=== PATIENT | female | born 1970 | race Caucasian/White ===

== ENCOUNTER 2018-10-11 05:27 | Emergency (ER) | payer OTHER ==
[2018-10-11 04:49] LABS: ALBUMIN 3.3 g/dL (3.5-5.0); BILIRUBIN,TOTAL 0.3 mg/dL (0.2-1.0); CREATININE 1.1 mg/dL (0.5-1.5); POTASSIUM 3.8 mmol/L (3.5-5.1); TOTAL PROTEIN, SERUM 7.4 g/dL (6.0-8.3)
[2018-10-11 04:51] LABS: BASOPHILS % (AUTO) 1.5 % (0.0-5.0); EOSINOPHILS % (AUTO) 1.4 % (0.0-8.0); HEMATOCRIT 45.8 % (36-48); LYMPHOCYTES % (AUTO) 26.3 % (21.0-51.0); MEAN CORPUSCULAR HEMOGLOBIN 30.8 pg (27.0-33.0); MEAN CORPUSCULAR HGB CONC 33.4 g/dL (32.0-36.0); MEAN CORPUSCULAR VOLUME 92.1 fL (79-99); NEUTROPHILS % (AUTO) 63.8 % (40.0-77.0); NUCLEATED RED BLOOD CELLS 0.1 % (0.0-0.19); PLATELET COUNT (AUTO) 227 K/uL (130-400); RED BLOOD CELL COUNT(AUTO) 4.97 MIL/uL (4.00-5.50); RED CELL DISTRIBUTION WIDTH 15.9 % (11.0-15.5); WHITE BLOOD COUNT (AUTO) 12.4 K/uL (4.8-10.8)
[2018-10-11 04:55] LABS: APPEARANCE,URINE Cloudy (CLEAR); BILIRUBIN,URINE Negative (NEGATIVE); COLOR,URINE Yellow (YELLOW); GLUCOSE, URINE (UA) >=1000 mg/dL (NEGATIVE); KETONES,URINE Negative (NEGATIVE); LEUKOCYTE ESTERASE ,URINE Negative (NEGATIVE); NITRATE,URINE Negative (NEGATIVE); OCCULT BLOOD,URINE Negative (NEGATIVE); PH,URINE 5.5 (5.0-8.0); PROTEIN,URINE Negative (NEGATIVE); UROBILINOGEN,URINE 0.2 mg/dL (0.2-1.0)
[2018-10-11 05:06] LABS: AMORPHOUS SEDIMENT,UR Rare /LPF (None Seen); BACTERIA,URINE Rare /HPF (None Seen); RBC,URINE None Seen /HPF (0-1); SQUAMOUS EPITHELIAL CELL,UR Few /HPF (0-2); WBC,URINE 0-1 /HPF (0-1); YEAST,URINE BUDDING None Seen /HPF (None Seen)
[2018-10-11] MEDS ORDERED: ASPIRIN 325 MG TABLET ONE (05:39)
[2018-10-11] MEDS ORDERED: INSULIN HUMULIN R 100 UNIT/ML 3ML ONE (05:40)
[2018-10-11 05:56] LABS: AMPHET/METH SCREEN,URINE NEGATIVE (NEGATIVE); BARBITURATE SCREEN, URINE NEGATIVE (NEGATIVE); BENZODIAZEPINES SCREEN,URINE NEGATIVE (NEGATIVE); CANNABINOID SCREEN,URINE NEGATIVE (NEGATIVE); COCAINE SCREEN,URINE NEGATIVE (NEGATIVE); OPIATE SCREEN,URINE NEGATIVE (NEGATIVE); PHENCYCLIDINE SCREEN,URINE NEGATIVE (NEGATIVE)
== END 2018-10-11 05:49 | disposition left against medical advice (07) ==
LOC: EDSTATUS 05:27 → EDH 05:30
DX: R07.89 Other chest pain (principal); E11.9 Type 2 diabetes mellitus without complications; I10 Essential (primary) hypertension; Z79.899 Other long term (current) drug therapy; Z88.8 Allergy status to other drugs, medicaments and biological substances
CPT/HCPCS: 36415; 71045; 80053; 80305; 81001; 84484; 85025; 93005; 96372; 99284; J1815

== ENCOUNTER 2018-10-25 10:07 | Emergency (ER) | payer SELFPAY | END 2018-10-25 11:00 | disposition home or self-care (01) | LOC: EDH 10:07 | DX: L02.411 Cutaneous abscess of right axilla (principal); B49 Unspecified mycosis; E11.9 Type 2 diabetes mellitus without complications; I10 Essential (primary) hypertension; Z88.8 Allergy status to other drugs, medicaments and biological substances; Z90.49 Acquired absence of other specified parts of digestive tract; Z95.1 Presence of aortocoronary bypass graft; Z90.710 Acquired absence of both cervix and uterus; Z72.0 Tobacco use ==

== ENCOUNTER 2022-12-07 12:20 | Inpatient (IN) | payer MEDICARE ==
[~2022-12-07] VITALS: Ht 165.1 cm; Wt 101.7 kg
[2022-12-07] MEDS ORDERED: 0.9%NACL 1000ML 1,000 ML IV ONE (14:00)
[2022-12-07] MEDS ORDERED: KETOROLAC 15MG/ML VIAL (15MG/ML) IV ONE (14:00)
[2022-12-07 14:33] LABS: BASOPHILS % (AUTO) 0.3 % (0.0-5.0); EOSINOPHILS % (AUTO) 0.4 % (0.0-8.0); HEMATOCRIT 35.9 % (36-48); LYMPHOCYTES % (AUTO) 4.7 % (21.0-51.0); MEAN CORPUSCULAR HEMOGLOBIN 29.6 pg (27.0-33.0); MEAN CORPUSCULAR HGB CONC 34.3 g/dL (32.0-36.0); MEAN CORPUSCULAR VOLUME 86.5 fL (79-99); MONOCYTES % (AUTO) 6.3 % (3.0-13.0); NEUTROPHILS % (AUTO) 86.7 % (40.0-77.0); PLATELET COUNT (AUTO) 252 K/uL (130-400); RED BLOOD CELL COUNT(AUTO) 4.15 MIL/uL (4.00-5.50); RED CELL DISTRIBUTION WIDTH 13.5 % (11.0-15.5); WHITE BLOOD COUNT (AUTO) 24.7 K/uL (4.8-10.8)
[2022-12-07 14:41] LABS: CREATININE 1.4 mg/dL (0.5-1.5)
[2022-12-07 14:45] LABS: ALBUMIN 2.5 g/dL (3.5-5.0); TOTAL PROTEIN, SERUM 7.6 g/dL (6.0-8.3)
[2022-12-07] MEDS ORDERED: ZOSYN 3.375GM +NS 50ML IVPB ONE (15:00)
[2022-12-07 15:03] LABS: CRP QUANTITATIVE 301.4 mg/L (0.00-9.0)
[2022-12-07] MEDS ORDERED: IOHEXOL 350 MG/ML 100ML INFUS..BTL IV ONE (15:18)
[2022-12-07 15:43] LABS: APPEARANCE,URINE CLOUDY (CLEAR); BILIRUBIN,URINE NEGATIVE (NEGATIVE); COLOR,URINE YELLOW (YELLOW); GLUCOSE, URINE (UA) 300 mg/dL (NEGATIVE); KETONES,URINE 10 mg/dL (NEGATIVE); LEUKOCYTE ESTERASE ,URINE 500 Leu/uL (NEGATIVE); NITRATE,URINE NEGATIVE (NEGATIVE); OCCULT BLOOD,URINE SMALL (NEGATIVE); PH,URINE 5.5 (5.0-8.0); PROTEIN,URINE 100 mg/dL (NEGATIVE); UROBILINOGEN,URINE 0.2 mg/dL (0.2-1.0)
[2022-12-07 15:55] LABS: BACTERIA,URINE FEW /HPF (None Seen); MUCUS,URINE FEW LPF (None Seen); OTHER CASTS, URINE 2 /LPF (None Seen); SQUAMOUS EPITHELIAL CELL,UR MOD /HPF (0-2); WBC,URINE 51-100 /HPF (0-1); YEAST,URINE BUDDING FEW /HPF (None Seen)
[2022-12-07 17:29] LABS: HEMOGLOBIN A1C 11.2 % (4.0-6.0)
[2022-12-07] MEDS ORDERED: POTASSIUM CHLORIDE 20MEQ/100ML 100 ML IV PRN (17:30)
[2022-12-07] MEDS ORDERED: ZOLPIDEM TARTRATE 5 MG TAB PO PRN (17:30)
[2022-12-07] MEDS ORDERED: MORPHINE 2 MG SYG IV PRN (17:30)
[2022-12-07] MEDS ORDERED: ACETAMINOPHEN 325 MG TAB PO PRN (17:30)
[2022-12-07] MEDS ORDERED: GLUCAGON 1MG KIT 1 MG ML IM PRN (17:30)
[2022-12-07] MEDS ORDERED: DIPHENHYDRAMINE HCL 25 MG CAPSULE PO PRN (17:30)
[2022-12-07] MEDS ORDERED: MAGNESIUM 2GM PREMIX 50ML 50 ML IV PRN (17:30)
[2022-12-07] MEDS ORDERED: POTASSIUM CHLORIDE 10% ELIXIR 20 MEQ/15 ML UDCUP PO PRN (17:30)
[2022-12-07] MEDS ORDERED: D5W-1/2 NS/20MEQ KCL 1,000 ML IV SCH (17:30)
[2022-12-07] MEDS ORDERED: MANNITOL 20% 500ML BAG 500 ML IV SCH (17:30)
[2022-12-07] MEDS ORDERED: POTASSIUM CHLORIDE 10MEQ/100ML 100 ML IV PRN (17:30)
[2022-12-07] MEDS ORDERED: KCL 20 MEQ ERTAB PO PRN (17:30)
[2022-12-07] MEDS ORDERED: INSULIN REGULAR, HUMAN 3ML 100 UNIT in 0.9%NACL 100ML 100 ML IV SCH ×2 (17:30)
[2022-12-07] MEDS ORDERED: 0.9%NACL 1000ML 1,000 ML IV SCH ×2 (17:30)
[2022-12-07] MEDS ORDERED: LIDOCAINE HCL-MPF 1% 2ML VIAL IV PRN (17:30)
[2022-12-07] MEDS ORDERED: ACETAMINOPHEN WITH CODEINE 1 TAB TAB PO PRN (17:30)
[2022-12-07] MEDS ORDERED: DEXTROSE 50%-WATER 50 ML DISP.SYRIN IV PRN (17:30)
[2022-12-07] MEDS ORDERED: MAGNESIUM 2GM PREMIX 50ML 50 ML IV SCH (17:30)
[2022-12-07 17:32] LABS: CHOLESTEROL 52 mg/dL (<200); HDL CHOLESTEROL 14 mg/dL (35-85); LDL DIRECT 21 mg/dL (0-99); TRIGLYCERIDES 92 mg/dL (30-200)
[2022-12-07] MEDS: ONDANSETRON 4MG INJ IV PRN (17:56)
[2022-12-07] MEDS: CEFTRIAXONE 1G VIAL IV SCH (17:56)
[2022-12-07 18:30] LABS: CREATININE 1.4 mg/dL (0.5-1.5); POTASSIUM 3.7 mmol/L (3.5-5.1)
[2022-12-07 19:31] LABS: ABG OXYGEN SATURATION 54.1 % (95.0-99.0); BASE EXCESS,VENOUS BLOOD GAS -6.7 (-2.0-3.0); HCO3,VENOUS BLOOD GAS 17.4 (21.0-28.0); PCO2,VENOUS BLOOD GAS 31 (32-45); PH,VENOUS BLOOD GAS 7.374 (7.350-7.450)
[2022-12-07] MEDS ORDERED: LACTATED RINGERS 1000ML 500 ML IV ONE (20:30)
[2022-12-07] MEDS ORDERED: INSULIN GLARGINE 100 UNITS/ML 10 ML VIAL SQ ONE (20:30)
[2022-12-07] MEDS: FAMOTIDINE 20MG TAB PO SCH (20:42)
[2022-12-07] MEDS ORDERED: INSULIN HUMULIN R 100 UNIT/ML 3ML SQ SCH (21:00)
[2022-12-07] MEDS: LACTATED RINGERS 1000ML 1,000 ML IV SCH (21:49)
[2022-12-07] MEDS: INSULIN HUMULIN R 100 UNIT/ML 3ML SQ SCH (21:49)
[2022-12-07 21:51] LABS: AMPHET/METH SCREEN,URINE NEGATIVE (NEGATIVE); BARBITURATE SCREEN, URINE NEGATIVE (NEGATIVE); BENZODIAZEPINES SCREEN,URINE NEGATIVE (NEGATIVE); CANNABINOID SCREEN,URINE POSITIVE (NEGATIVE); COCAINE SCREEN,URINE NEGATIVE (NEGATIVE); OPIATE SCREEN,URINE NEGATIVE (NEGATIVE); PHENCYCLIDINE SCREEN,URINE NEGATIVE (NEGATIVE)
[2022-12-07 23:30] VITALS: BP 137/78
[2022-12-07] MEDS ORDERED: GLIP10TA9 PO (23:33)
[2022-12-07] MEDS ORDERED: TOPI25TA48 PO (23:33)
[2022-12-07] MEDS ORDERED: LISI20TA24 PO (23:33)
[2022-12-07] MEDS ORDERED: SEMA0.258 SQ (23:33)
[2022-12-07] MEDS ORDERED: ZOLP12.555 PO (23:33)
[2022-12-07] MEDS ORDERED: ONDA-104 PO (23:33)
[2022-12-07] MEDS ORDERED: ROSU20TA31 PO (23:33)
[2022-12-07] MEDS ORDERED: CLOP75TA32 PO (23:33)
[2022-12-07] MEDS ORDERED: CYCL5TAB PO (23:33)
[2022-12-07] MEDS ORDERED: INSU100I22 SQ (23:33)
[2022-12-07] MEDS ORDERED: NITR0.4T50 SL (23:33)
[2022-12-08] MEDS: ACETAMINOPHEN WITH CODEINE 1 TAB TAB PO PRN ×3 (02:58→16:02)
[2022-12-08 03:33] VITALS: BP 114/66
[2022-12-08] MEDS: LACTATED RINGERS 1000ML 1,000 ML IV SCH ×3 (03:47→23:17)
[2022-12-08 05:12] LABS: BASOPHILS % (AUTO) 0.3 % (0.0-5.0); EOSINOPHILS % (AUTO) 0.3 % (0.0-8.0); HEMATOCRIT 33.3 % (36-48); LYMPHOCYTES % (AUTO) 7.3 % (21.0-51.0); MEAN CORPUSCULAR HEMOGLOBIN 29.6 pg (27.0-33.0); MEAN CORPUSCULAR VOLUME 89.5 fL (79-99); NEUTROPHILS % (AUTO) 83.4 % (40.0-77.0); PLATELET COUNT (AUTO) 238 K/uL (130-400); RED BLOOD CELL COUNT(AUTO) 3.72 MIL/uL (4.00-5.50); RED CELL DISTRIBUTION WIDTH 13.7 % (11.0-15.5); WHITE BLOOD COUNT (AUTO) 20.9 K/uL (4.8-10.8)
[2022-12-08 05:37] LABS: ALBUMIN 2.1 g/dL (3.5-5.0); CREATININE 1.3 mg/dL (0.5-1.5); POTASSIUM 3.6 mmol/L (3.5-5.1); TOTAL PROTEIN, SERUM 6.9 g/dL (6.0-8.3)
[2022-12-08 08:00] VITALS: BP 104/57
[2022-12-08] MEDS: INSULIN HUMULIN R 100 UNIT/ML 3ML SQ SCH ×4 (09:24→21:12)
[2022-12-08] MEDS: ENOXAPARIN SODIUM 30 MG/0.3 ML SQ SCH (09:32)
[2022-12-08] MEDS ORDERED: NITROGLYCERIN 0.4 MG SL TAB SL PRN (11:30)
[2022-12-08 11:31] LABS: BILIRUBIN,DIRECT 0.4 mg/dL (0.0-0.3); TOTAL PROTEIN, SERUM 6.7 g/dL (6.0-8.3)
[2022-12-08 11:33] VITALS: BP 120/67
[2022-12-08] MEDS ORDERED: VANCOMYCIN PROTOCOL PER PHARMACY IV SCH (13:30)
[2022-12-08] MEDS ORDERED: VANCOMYCIN 1.5 GM/250 ML BAG 250 ML IV SCH (13:30)
[2022-12-08 16:00] VITALS: BP 147/83
[2022-12-08] MEDS: CEFTRIAXONE 1G VIAL IV SCH (18:03)
[2022-12-08 20:00] VITALS: BP 122/74
[2022-12-08] MEDS ORDERED: INSULIN GLARGINE 100 UNITS/ML 10 ML VIAL SQ SCH (21:00)
[2022-12-08] MEDS: FAMOTIDINE 20MG TAB PO SCH (21:02)
[2022-12-08] MEDS: ATORVASTATIN 40 MG TABLET PO SCH (21:02)
[2022-12-08] MEDS: TOPIRAMATE 25 MG TABLET PO SCH (21:02)
[2022-12-08] MEDS: KETOROLAC 15MG/ML VIAL (15MG/ML) IV PRN (21:04)
[2022-12-09] VITALS: BP 116/71
[2022-12-09 04:00] VITALS: BP 117/66
[2022-12-09 06:09] LABS: BASOPHILS % (AUTO) 0.2 % (0.0-5.0); EOSINOPHILS % (AUTO) 0.9 % (0.0-8.0); HEMATOCRIT 33.8 % (36-48); LYMPHOCYTES % (AUTO) 13.5 % (21.0-51.0); MEAN CORPUSCULAR HEMOGLOBIN 29.5 pg (27.0-33.0); MEAN CORPUSCULAR VOLUME 92.3 fL (79-99); MONOCYTES % (AUTO) 9.2 % (3.0-13.0); NEUTROPHILS % (AUTO) 74.8 % (40.0-77.0); PLATELET COUNT (AUTO) 243 K/uL (130-400); RED BLOOD CELL COUNT(AUTO) 3.66 MIL/uL (4.00-5.50); RED CELL DISTRIBUTION WIDTH 14.1 % (11.0-15.5); WHITE BLOOD COUNT (AUTO) 16.3 K/uL (4.8-10.8)
[2022-12-09 06:34] LABS: BILIRUBIN,DIRECT 0.3 mg/dL (0.0-0.3); CREATININE 1.1 mg/dL (0.5-1.5); POTASSIUM 4.5 mmol/L (3.5-5.1); TOTAL PROTEIN, SERUM 6.8 g/dL (6.0-8.3)
[2022-12-09] MEDS ORDERED: INSULIN HUMULIN R 100 UNIT/ML 3ML SQ SCH (07:30)
[2022-12-09] MEDS ORDERED: HYDROMORPHONE 0.5 MG SYG (0.5MG/0.5ML) IVP ONE (07:30)
[2022-12-09] MEDS ORDERED: HYDROMORPHONE 0.5 MG SYG (0.5MG/0.5ML) ONE (07:31)
[2022-12-09] MEDS: INSULIN HUMULIN R 100 UNIT/ML 3ML SQ SCH ×6 (07:35→20:37)
[2022-12-09 08:00] VITALS: BP 130/69
[2022-12-09] MEDS ORDERED: 0.9% NACL 250ML 250 ML IV SCH (09:00)
[2022-12-09] MEDS: ENOXAPARIN SODIUM 30 MG/0.3 ML SQ SCH (09:51)
[2022-12-09] MEDS: LISINOPRIL 20 MG TABLET PO SCH (09:52)
[2022-12-09] MEDS: TOPIRAMATE 25 MG TABLET PO SCH ×2 (09:52→20:35)
[2022-12-09] MEDS: VANCOMYCIN 750MG VIAL IVPB SCH ×2 (09:52→20:36)
[2022-12-09] MEDS: CLOPIDOGREL 75MG TAB PO SCH (09:52)
[2022-12-09] MEDS: LACTATED RINGERS 1000ML 1,000 ML IV SCH ×2 (11:59→23:03)
[2022-12-09 12:00] VITALS: BP 150/76
[2022-12-09] MEDS: MORPHINE 2 MG SYG IVP PRN ×2 (15:46→20:44)
[2022-12-09 16:00] VITALS: BP 136/76
[2022-12-09] MEDS: CEFTRIAXONE 1G VIAL IV SCH (17:28)
[2022-12-09] MEDS: KETOROLAC 15MG/ML VIAL (15MG/ML) IV PRN (17:29)
[2022-12-09 20:00] VITALS: BP 120/66
[2022-12-09] MEDS: FAMOTIDINE 20MG TAB PO SCH (20:35)
[2022-12-09] MEDS: ATORVASTATIN 40 MG TABLET PO SCH (20:36)
[2022-12-09] MEDS: INSULIN GLARGINE 100 UNITS/ML 10 ML VIAL SQ SCH (20:38)
[2022-12-10] VITALS: BP 127/79
[2022-12-10 04:00] VITALS: BP 146/77
[2022-12-10] MEDS: KETOROLAC 15MG/ML VIAL (15MG/ML) IV PRN ×3 (04:03→19:27)
[2022-12-10 06:01] LABS: BASOPHILS % (AUTO) 0.3 % (0.0-5.0); EOSINOPHILS % (AUTO) 0.6 % (0.0-8.0); HEMATOCRIT 33.7 % (36-48); LYMPHOCYTES % (AUTO) 17.4 % (21.0-51.0); MEAN CORPUSCULAR HEMOGLOBIN 29.1 pg (27.0-33.0); MEAN CORPUSCULAR HGB CONC 31.8 g/dL (32.0-36.0); MEAN CORPUSCULAR VOLUME 91.6 fL (79-99); MONOCYTES % (AUTO) 10.1 % (3.0-13.0); NEUTROPHILS % (AUTO) 69.9 % (40.0-77.0); PLATELET COUNT (AUTO) 279 K/uL (130-400); RED BLOOD CELL COUNT(AUTO) 3.68 MIL/uL (4.00-5.50); RED CELL DISTRIBUTION WIDTH 14.3 % (11.0-15.5); WHITE BLOOD COUNT (AUTO) 12.4 K/uL (4.8-10.8)
[2022-12-10] MEDS: INSULIN HUMULIN R 100 UNIT/ML 3ML SQ SCH ×7 (06:24→19:32)
[2022-12-10 06:30] LABS: ALBUMIN 1.8 g/dL (3.5-5.0); CREATININE 1.1 mg/dL (0.5-1.5); MAGNESIUM 1.7 mg/dL (1.80-2.40); POTASSIUM 3.9 mmol/L (3.5-5.1); TOTAL PROTEIN, SERUM 6.5 g/dL (6.0-8.3)
[2022-12-10 08:00] VITALS: BP 154/58
[2022-12-10] MEDS: LISINOPRIL 20 MG TABLET PO SCH (08:29)
[2022-12-10] MEDS: VANCOMYCIN 750MG VIAL IVPB SCH ×2 (08:29→21:09)
[2022-12-10] MEDS: ENOXAPARIN SODIUM 30 MG/0.3 ML SQ SCH (08:29)
[2022-12-10] MEDS: CLOPIDOGREL 75MG TAB PO SCH (08:30)
[2022-12-10] MEDS: LACTATED RINGERS 1000ML 1,000 ML IV SCH ×2 (08:30→18:40)
[2022-12-10] MEDS: TOPIRAMATE 25 MG TABLET PO SCH ×2 (09:08→21:09)
[2022-12-10] MEDS: MORPHINE 2 MG SYG IVP PRN ×2 (09:08→22:22)
[2022-12-10 12:00] VITALS: BP 163/86
[2022-12-10 16:00] VITALS: BP 127/69
[2022-12-10] MEDS: CEFTRIAXONE 1G VIAL IV SCH (16:58)
[2022-12-10 19:00] VITALS: BP 150/89
[2022-12-10] MEDS: ATORVASTATIN 40 MG TABLET PO SCH (21:09)
[2022-12-10] MEDS: FAMOTIDINE 20MG TAB PO SCH (21:09)
[2022-12-10] MEDS: INSULIN GLARGINE 100 UNITS/ML 10 ML VIAL SQ SCH (21:16)
[2022-12-10] MEDS: ONDANSETRON 4MG INJ IV PRN (22:22)
[2022-12-11] VITALS: BP 136/73
[2022-12-11 04:00] VITALS: BP 152/85
[2022-12-11] MEDS: LACTATED RINGERS 1000ML 1,000 ML IV SCH ×2 (05:11→15:11)
[2022-12-11] MEDS: INSULIN HUMULIN R 100 UNIT/ML 3ML SQ SCH ×7 (05:26→21:00)
[2022-12-11 05:28] LABS: BASOPHILS % (AUTO) 0.4 % (0.0-5.0); EOSINOPHILS % (AUTO) 0.7 % (0.0-8.0); HEMATOCRIT 30.8 % (36-48); LYMPHOCYTES % (AUTO) 21.4 % (21.0-51.0); MEAN CORPUSCULAR HEMOGLOBIN 29.1 pg (27.0-33.0); MEAN CORPUSCULAR HGB CONC 32.1 g/dL (32.0-36.0); MEAN CORPUSCULAR VOLUME 90.6 fL (79-99); MONOCYTES % (AUTO) 11.5 % (3.0-13.0); NEUTROPHILS % (AUTO) 64.3 % (40.0-77.0); PLATELET COUNT (AUTO) 325 K/uL (130-400); RED CELL DISTRIBUTION WIDTH 14.2 % (11.0-15.5); WHITE BLOOD COUNT (AUTO) 12.2 K/uL (4.8-10.8)
[2022-12-11] MEDS: KETOROLAC 15MG/ML VIAL (15MG/ML) IV PRN ×3 (05:29→18:32)
[2022-12-11 05:46] LABS: ALBUMIN 1.7 g/dL (3.5-5.0); CREATININE 1.1 mg/dL (0.5-1.5); MAGNESIUM 1.6 mg/dL (1.80-2.40); POTASSIUM 4.1 mmol/L (3.5-5.1); TOTAL PROTEIN, SERUM 6.6 g/dL (6.0-8.3)
[2022-12-11 08:00] VITALS: BP 156/81
[2022-12-11] MEDS: CLOPIDOGREL 75MG TAB PO SCH (08:42)
[2022-12-11] MEDS: VANCOMYCIN 750MG VIAL IVPB SCH ×2 (08:42→20:28)
[2022-12-11] MEDS: LISINOPRIL 20 MG TABLET PO SCH (08:42)
[2022-12-11] MEDS: TOPIRAMATE 25 MG TABLET PO SCH ×2 (08:42→20:29)
[2022-12-11] MEDS: ENOXAPARIN SODIUM 30 MG/0.3 ML SQ SCH (08:43)
[2022-12-11] MEDS: MORPHINE 2 MG SYG IVP PRN ×2 (09:02→23:49)
[2022-12-11] MEDS: CEFTRIAXONE 1G VIAL IV SCH (17:02)
[2022-12-11 20:00] VITALS: BP 148/72
[2022-12-11] MEDS: ATORVASTATIN 40 MG TABLET PO SCH (20:29)
[2022-12-11] MEDS: FAMOTIDINE 20MG TAB PO SCH (20:29)
[2022-12-11] MEDS: INSULIN GLARGINE 100 UNITS/ML 10 ML VIAL SQ SCH (21:21)
[2022-12-11] MEDS: ONDANSETRON 4MG INJ IV PRN (23:49)
[2022-12-12 00:06] VITALS: BP 152/78
[2022-12-12] MEDS: LACTATED RINGERS 1000ML 1,000 ML IV SCH ×2 (00:30→15:33)
[2022-12-12] MEDS: KETOROLAC 15MG/ML VIAL (15MG/ML) IV PRN ×2 (04:34→17:20)
[2022-12-12 04:43] VITALS: BP 141/74
[2022-12-12] MEDS: INSULIN HUMULIN R 100 UNIT/ML 3ML SQ SCH ×8 (05:55→20:52)
[2022-12-12 07:40] VITALS: BP 154/79
[2022-12-12 07:58] LABS: BASOPHILS % (AUTO) 0.3 % (0.0-5.0); EOSINOPHILS % (AUTO) 0.6 % (0.0-8.0); HEMATOCRIT 35.1 % (36-48); LYMPHOCYTES % (AUTO) 18.9 % (21.0-51.0); MEAN CORPUSCULAR HGB CONC 31.1 g/dL (32.0-36.0); MEAN CORPUSCULAR VOLUME 93.4 fL (79-99); MONOCYTES % (AUTO) 9.8 % (3.0-13.0); NEUTROPHILS % (AUTO) 68.2 % (40.0-77.0); PLATELET COUNT (AUTO) 440 K/uL (130-400); RED BLOOD CELL COUNT(AUTO) 3.76 MIL/uL (4.00-5.50); RED CELL DISTRIBUTION WIDTH 14.4 % (11.0-15.5); WHITE BLOOD COUNT (AUTO) 11.9 K/uL (4.8-10.8)
[2022-12-12 08:16] LABS: CREATININE 1.1 mg/dL (0.5-1.5); MAGNESIUM 2.2 mg/dL (1.80-2.40); POTASSIUM 4.2 mmol/L (3.5-5.1); TOTAL PROTEIN, SERUM 7.4 g/dL (6.0-8.3)
[2022-12-12] MEDS: TOPIRAMATE 25 MG TABLET PO SCH ×2 (09:33→20:51)
[2022-12-12] MEDS: LISINOPRIL 20 MG TABLET PO SCH (09:33)
[2022-12-12] MEDS: ENOXAPARIN SODIUM 30 MG/0.3 ML SQ SCH (09:34)
[2022-12-12] MEDS: CLOPIDOGREL 75MG TAB PO SCH (09:34)
[2022-12-12] MEDS: VANCOMYCIN 750MG VIAL IVPB SCH (09:36)
[2022-12-12 10:59] LABS: % IRON SATURATION 11.9 % (22-44)
[2022-12-12 11:40] VITALS: BP 131/90
[2022-12-12] MEDS: MORPHINE 2 MG SYG IVP PRN ×2 (15:34→21:03)
[2022-12-12 15:45] VITALS: BP 160/80
[2022-12-12 15:57] LABS: INR 1.01 (0.85-1.15)
[2022-12-12 15:59] LABS: PARTIAL THROMBOPLASTIN TIME 31.3 SEC (26.3-35.5)
[2022-12-12] MEDS: CEFAZOLIN SODIUM 1 GM VIAL IVP SCH (18:15)
[2022-12-12 20:24] VITALS: BP 131/70
[2022-12-12] MEDS: FAMOTIDINE 20MG TAB PO SCH (20:51)
[2022-12-12] MEDS: ATORVASTATIN 40 MG TABLET PO SCH (20:51)
[2022-12-12] MEDS: INSULIN GLARGINE 100 UNITS/ML 10 ML VIAL SQ SCH (20:59)
[2022-12-12] MEDS ORDERED: VANCOMYCIN 750MG VIAL IVPB SCH (21:00)
[2022-12-12] MEDS ORDERED: IRON SUCROSE COMPLEX 300 MG in 0.9% NACL 250ML 250 ML IV ONE (21:00)
[2022-12-12] MEDS ORDERED: VANCOMYCIN 500MG+NS 100ML IV SCH (21:00)
[2022-12-12] MEDS: ZOLPIDEM TARTRATE 5 MG TAB PO PRN (21:02)
[2022-12-13] VITALS (7 sets, daily range): BP systolic 135–158; BP diastolic 72–90
[2022-12-13] MEDS: CEFAZOLIN SODIUM 1 GM VIAL IVP SCH ×3 (02:05→17:13)
[2022-12-13] MEDS: LACTATED RINGERS 1000ML 1,000 ML IV SCH ×2 (05:22→06:30)
[2022-12-13] MEDS: MORPHINE 2 MG SYG IVP PRN (05:22)
[2022-12-13 05:23] LABS: BASOPHILS % (AUTO) 0.5 % (0.0-5.0); EOSINOPHILS % (AUTO) 0.6 % (0.0-8.0); HEMATOCRIT 34.5 % (36-48); LYMPHOCYTES % (AUTO) 19.6 % (21.0-51.0); MEAN CORPUSCULAR HEMOGLOBIN 29.2 pg (27.0-33.0); MEAN CORPUSCULAR HGB CONC 31.9 g/dL (32.0-36.0); MEAN CORPUSCULAR VOLUME 91.5 fL (79-99); MONOCYTES % (AUTO) 9.5 % (3.0-13.0); NEUTROPHILS % (AUTO) 67.2 % (40.0-77.0); PLATELET COUNT (AUTO) 494 K/uL (130-400); RED BLOOD CELL COUNT(AUTO) 3.77 MIL/uL (4.00-5.50); RED CELL DISTRIBUTION WIDTH 14.4 % (11.0-15.5)
[2022-12-13] MEDS: INSULIN HUMULIN R 100 UNIT/ML 3ML SQ SCH ×7 (05:24→20:54)
[2022-12-13 05:38] LABS: CREATININE 1.1 mg/dL (0.5-1.5); POTASSIUM 4.4 mmol/L (3.5-5.1); TOTAL PROTEIN, SERUM 7.3 g/dL (6.0-8.3)
[2022-12-13] MEDS: TOPIRAMATE 25 MG TABLET PO SCH ×2 (09:35→20:52)
[2022-12-13] MEDS: CLOPIDOGREL 75MG TAB PO SCH (09:35)
[2022-12-13] MEDS: LISINOPRIL 20 MG TABLET PO SCH (09:36)
[2022-12-13] MEDS: ENOXAPARIN SODIUM 30 MG/0.3 ML SQ SCH (09:36)
[2022-12-13] MEDS: KETOROLAC 15MG/ML VIAL (15MG/ML) IV PRN (12:09)
[2022-12-13] MEDS: ATORVASTATIN 40 MG TABLET PO SCH (20:52)
[2022-12-13] MEDS: FAMOTIDINE 20MG TAB PO SCH (20:52)
[2022-12-13] MEDS: ZOLPIDEM TARTRATE 5 MG TAB PO PRN (20:52)
[2022-12-13] MEDS: ACETAMINOPHEN 325 MG TAB PO PRN (20:53)
[2022-12-13] MEDS: INSULIN GLARGINE 100 UNITS/ML 10 ML VIAL SQ SCH (21:02)
[2022-12-14] MEDS: CEFAZOLIN SODIUM 1 GM VIAL IVP SCH ×2 (01:30→08:48)
[2022-12-14 04:23] VITALS: BP 151/76
[2022-12-14] MEDS: INSULIN HUMULIN R 100 UNIT/ML 3ML SQ SCH ×2 (07:27→08:49)
[2022-12-14 08:00] VITALS: BP 165/87
[2022-12-14] MEDS: CLOPIDOGREL 75MG TAB PO SCH (09:04)
[2022-12-14] MEDS: TOPIRAMATE 25 MG TABLET PO SCH (09:04)
[2022-12-14] MEDS: LISINOPRIL 20 MG TABLET PO SCH (09:04)
[2022-12-14] MEDS: ENOXAPARIN SODIUM 30 MG/0.3 ML SQ SCH (09:05)
[2022-12-14] MEDS: LACTATED RINGERS 1000ML 1,000 ML IV SCH (09:07)
[2022-12-14] MEDS: ACETAMINOPHEN 325 MG TAB PO PRN (09:14)
[2022-12-14 10:17] LABS: HEMATOCRIT 35.7 % (36-48); MEAN CORPUSCULAR HEMOGLOBIN 29.2 pg (27.0-33.0); MEAN CORPUSCULAR HGB CONC 31.9 g/dL (32.0-36.0); MEAN CORPUSCULAR VOLUME 91.3 fL (79-99); RED BLOOD CELL COUNT(AUTO) 3.91 MIL/uL (4.00-5.50); RED CELL DISTRIBUTION WIDTH 14.4 % (11.0-15.5); WHITE BLOOD COUNT (AUTO) 11.7 K/uL (4.8-10.8)
[2022-12-14 10:22] LABS: CREATININE 1.1 mg/dL (0.5-1.5); MAGNESIUM 2.5 mg/dL (1.80-2.40); POTASSIUM 4.2 mmol/L (3.5-5.1)
[2022-12-14 11:08] LABS: INR 1.03 (0.85-1.15); PROTHROMBIN TIME 11.2 SEC (9.6-11.6)
[2022-12-14 11:10] LABS: PARTIAL THROMBOPLASTIN TIME 34.1 SEC (26.3-35.5)
== END 2022-12-14 15:50 | disposition home or self-care (01) | DRG 871 ==
LOC: EDH 12:20 → EDHIP 17:03 → 3BH 21:02
PROVIDERS: ADMIT Internal Medicine; ATTEND Internal Medicine
PROC: 02HV33Z Insertion of Infusion Device into Superior Vena Cava, Percutaneous Approach (ICD-10-PCS; principal; 2022-12-13)
PROC: 02HV33Z Insertion of Infusion Device into Superior Vena Cava, Percutaneous Approach (ICD-10-PCS; 2022-12-14)
DX: A41.01 Sepsis due to Methicillin susceptible Staphylococcus aureus (principal); E11.10 Type 2 diabetes mellitus with ketoacidosis without coma; E43 Unspecified severe protein-calorie malnutrition; N39.0 Urinary tract infection, site not specified; N10 Acute pyelonephritis; E87.1 Hypo-osmolality and hyponatremia; E78.2 Mixed hyperlipidemia; R74.01 Elevation of levels of liver transaminase levels; E66.01 Morbid (severe) obesity due to excess calories; E11.65 Type 2 diabetes mellitus with hyperglycemia; I10 Essential (primary) hypertension; E78.00 Pure hypercholesterolemia, unspecified; I25.10 Atherosclerotic heart disease of native coronary artery without angina pectoris; G89.29 Other chronic pain; F32.A Depression, unspecified; E86.0 Dehydration; M19.90 Unspecified osteoarthritis, unspecified site; Z96.653 Presence of artificial knee joint, bilateral; Z90.710 Acquired absence of both cervix and uterus; Z68.33 Body mass index [BMI] 33.0-33.9, adult; Z86.718 Personal history of other venous thrombosis and embolism; Z83.3 Family history of diabetes mellitus; Z90.711 Acquired absence of uterus with remaining cervical stump; Z95.1 Presence of aortocoronary bypass graft; Z87.891 Personal history of nicotine dependence; Z79.4 Long term (current) use of insulin; Z79.84 Long term (current) use of oral hypoglycemic drugs
CPT/HCPCS: 36415; 36600; 71045; 74177; 76700; 80048; 80053; 80061; 80076; 80202; 80305; 81001; 82010; 82435; 82803; 82947; 82948; 83036; 83540; 83550; 83605; 83735; 83930; 84132; 84145; 84295; 85025; 85027; 85610; 85730; 86140; 87040; 87077; 87088; 87186; 93306; 93356; 93970; 96361; 96365; 96375; 97039; C1894; G0378; J0690; J0696; J1170; J1650; J1756; J1815; J1885; J2405; J2543; J3475; J3490; J7030; J7050; Q9967

== ENCOUNTER 2024-08-29 05:41 | Emergency (ER) | payer MEDICARE ==
[~2024-08-29] VITALS: Ht 165.1 cm; Wt 88.0 kg
[~2024-08-29 05:41] MED LIST: CLOP75TA32 PO; CYCL5TAB3 PO; GLIP10TA16 PO; INSU100I22 SQ; LISI20TA24 PO; NITR0.4T50 SL; ONDA-104 PO; ROSU20TA98 PO; SEMA0.258 SQ; TOPI25TA48 PO; ZOLP12.570 PO
[2024-08-29 06:20] LABS: BASOPHILS # (AUTO) 0.05 K/uL (0.00-0.20); BASOPHILS % (AUTO) 0.5 % (0.0-5.0); EOSINOPHILS # (AUTO) 0.01 K/uL (0.00-0.70); EOSINOPHILS % (AUTO) 0.1 % (0.0-8.0); HEMATOCRIT 42.3 % (36-48); IMMATURE GRANULOCYTE ABSOLUTE 0.03 K/uL (0-1); MEAN CORPUSCULAR HEMOGLOBIN 29.2 pg (27.0-33.0); MEAN CORPUSCULAR HGB CONC 33.3 g/dL (32.0-36.0); MEAN CORPUSCULAR VOLUME 87.6 fL (79-99); MONOCYTES # (AUTO) 0.7 K/uL (0.1-1.0); MONOCYTES % (AUTO) 6.3 % (3.0-13.0); NEUTROPHILS # (AUTO) 7.3 K/uL (1.8-7.7); NEUTROPHILS % (AUTO) 65.8 % (40.0-77.0); NUCLEATED RED BLOOD CELLS 0.2 % (0.0-0.19); PLATELET COUNT (AUTO) 349 K/uL (130-400); RED BLOOD CELL COUNT(AUTO) 4.83 MIL/uL (4.00-5.50); RED CELL DISTRIBUTION WIDTH 17.9 % (11.0-15.5); WHITE BLOOD COUNT (AUTO) 11.1 K/uL (4.8-10.8)
--- NOTE | 2024-08-29 06:22 | ERN ---
General Chief Complaint: Weakness Stated Complaint: C/O WEAKNESS WITH SOB Time Seen by MD: 05:42 Source: patient History of Present Illness Initial Comments Patient is a 54-year-old female coming in to be evaluated for multiple complaints. Patient states that she has been feeling generalized body weakness lower extremity pain and believes her blood glucose was in the 40s. Allergies: Coded Allergies: No Known Drug Allergies (Verified Allergy, Unknown, 02/03/20) Home Meds Reported Medications Insulin Detemir (Levemir Flextouch) 100 Unit/1 Ml Insuln.pen, 30 UNITS SQ DAILY 12/07/22 Semaglutide (Ozempic) 0.25 Mg/0.4 Ml Pen.injctr, 0.25 MG SQ QWEEK 12/07/22 Rosuvastatin Calcium (Rosuvastatin Calcium) 20 Mg Tablet, 20 MG PO HS 12/07/22 Cyclobenzaprine HCl (Cyclobenzaprine HCl) 5 Mg Tablet, 5 MG PO BID 12/07/22 Clopidogrel Bisulfate (Clopidogrel) 75 Mg Tablet, 75 MG PO DAILY 12/07/22 Topiramate (Topiramate) 25 Mg Tablet, 25 MG PO BID 12/07/22 Glipizide (Glipizide) 10 Mg Tablet, 10 MG PO DAILY 12/07/22 Ondansetron HCl (Ondansetron HCl) 4 Mg Tablet, 4 MG PO Q6HR PRN for NAUSEA/V OMITING 12/07/22 Nitroglycerin (Nitroglycerin) 0.4 Mg Tab.subl, 0.4 MG SL DAILY PRN for CHEST PAIN 12/07/22 Lisinopril (Lisinopril) 20 Mg Tablet, 1 TAB PO DAILY 12/07/22 Zolpidem Tartrate (Zolpidem Tartrate ER) 12.5 Mg Tab.mphase, 1 TAB PO HSPRN PRN for INSOMNIA 12/07/22 Past Medical History Past Medical History: Anxiety, Depression, Diabetes-Type II, High Cholesterol, Heart Disease, Hypertension Medical History Other: CHRONIC BACK PAIN Past Surgical History: Cholecystectomy, Other Surgical History Other: TRIPLE BYPASS, BILATERAL KNEE SURGERY ROS Dictation CONSTITUTIONAL: No chills, no fever, no weakness, no diaphoresis, no malaise. HEAD/FACE: No signs of trauma. EENT: No eye pain, no blurred vision, no tearing, no double vision, no ear pain, no ear discharge, no nose pain, no nasal congestion, no throat pain, no throat swelling, no mouth pain. RESPIRATORY: No cough, no orthopnea, no SOB, no stridor, no wheezing. CARDIOVASCULAR: No chest pain, no edema, no palpitations, no syncope. GASTROINTESTINAL/ABDOMINAL: No abdominal pain, no constipation, no diarrhea, no nausea, no vomiting. GENITOURINARY: No abnormal discharge, no dysuria, no frequent urination, no hematuria. No complaints of pain in the genitals. MUSCULOSKELETAL: No back pain, no gout, no joint pain, no joint swelling, no muscle pain, no muscle stiffness, no neck pain. INTEGUMENTARY: No change in color, no change in hair/nails, no dryness, no lesion, no lumps, no rash. NEUROLOGICAL/PSYCH: No anxiety, not depressed, no emotional problem, no headache, no numbness, no pre-existing deficit, no history of seizures, no tremors, no weakness. HEMATOLOGIC/LYMPHATIC: Not anemic, no history of blood clots, no apparent bleeding, no bruising, glands not swollen. All Systems Negative, Except as Noted. Physical Exam Physical Exam Dictation VITAL SIGNS: Reviewed. GENERAL APPEARANCE: Alert, oriented x3, no acute distress, obese. HEAD AND FACE: Non-traumatic. EYES: PERRL, pink conjunctivas, eyelid no trauma, anterior chamber clear. EARS: Pinnas intact and no signs of trauma or erythema. Ear canals clear and no discharge. TMs no erythema. NOSE: No discharge, no bleeding. OROPHARYNX: Mouth normal, teeth no caries, tongue pink. Pharynx clear, no erythema. Tonsils no exudates, no abscesses noted. Mucous membrane moist. NECK: Supple, non-tender, no thyromegaly, no masses, no JVD, no bruits. BREAST: Deferred. CHEST: No tenderness, no crepitus, no paradoxical movement, no retractions. LUNGS: Clear, well-ventilated, symmetric, no rales, no wheezing, no rhonchi, no stridor, good breath sounds bilaterally. HEART: Regular rate, regular rhythm, no murmur, no gallops. VASCULAR: No peripheral edema. ABDOMEN: Soft, positive bowel sounds, nondistended, no guarding, nontender, no rebound, no masses no hepatomegaly, no splenomegaly, no Cooper's sign, no hernias. RECTAL: Deferred. GENITAL: Deferred. NEUROLOGICAL: Normal speech, gross motor function intact, gross sensory function intact. MUSCULOSKELETAL: Neck nontender, full range of motion, back nontender, full range of motion. EXTREMITIES: Nontender, full range of motion. SKIN: Color pink, dry, no turgor, no rash, no lacerations, no abrasions, no contusions. LYMPHATICS: Deferred. Results Laboratory and Microbiology Lab and Micro Result Laboratory Tests Test 08/29/24 05:50 08/29/24 06:12 08/29/24 08:36 08/29/24 08:48 Whole Blood Glucose 237 MG/DL (70-110) H White Blood Count 11.1 K/uL (4.8-10.8) H Red Blood Count 4.83 MIL/uL (4.00-5.50) Hemoglobin 14.1 g/dL (12.0-16.0) Hematocrit 42.3 % (36-48) Mean Corpuscular Volume 87.6 fL (79-99) Mean Corpuscular Hemoglobin 29.2 pg (27.0-33.0) Mean Corpuscular Hemoglobin Concent 33.3 g/dL (32.0-36.0) Red Cell Distribution Width 17.9 % (11.0-15.5) H Platelet Count 349 K/uL (130-400) Mean Platelet Volume 9.6 fL (7.5-10.5) Immature Granulocyte % (Auto) 0.3 % (0-1) Neutrophils (%) (Auto) 65.8 % (40.0-77.0) Lymphocytes (%) (Auto) 27.0 % (21.0-51.0) Monocytes (%) (Auto) 6.3 % (3.0-13.0) Eosinophils (%) (Auto) 0.1 % (0.0-8.0) Basophils (%) (Auto) 0.5 % (0.0-5.0) Neutrophils # (Auto) 7.3 K/uL (1.8-7.7) Lymphocytes # (Auto) 3.0 K/uL (1.0-4.8) Monocytes # (Auto) 0.7 K/uL (0.1-1.0) Eosinophils # (Auto) 0.01 K/uL (0.00-0.70) Basophils # (Auto) 0.05 K/uL (0.00-0.20) Absolute Immature Granulocyte (auto 0.03 K/uL (0-1) Nucleated Red Blood Cells 0.2 % (0.0-0.19) H Prothrombin Time 11.4 SEC (9.6-11.6) Prothromb Time International Ratio 1.06 (0.85-1.15) Activated Partial Thromboplast Time 28.4 SEC (26.3-35.5) D-Dimer Quantitative (PE/DVT) 729 ng/mL (0-500) *H Sodium Level 141 mmol/L (136-145) Potassium Level 3.2 mmol/L (3.5-5.1) L Chloride Level 100 mmol/L (101-111) L Carbon Dioxide Level 27 mmol/L (21-32) Blood Urea Nitrogen 10 mg/dL (7-18) Creatinine 1.5 mg/dL (0.5-1.0) H Glomerular Filtration Rate Calc 42 mL/min (>90) Random Glucose 265 mg/dL (70-105) H Total Calcium 9.2 mg/dL (8.5-10.1) Magnesium Level 1.80 mg/dL (1.80-2.40) Total Creatine Kinase 32 U/L (21-232) Troponin I High Sensitivity 11 ng/L (4-50) 11 ng/L (4-50) B-Type Natriuretic Peptide 86 pg/mL (0-100) Urine Color COLORLESS (YELLOW) Urine Appearance CLEAR (CLEAR) Urine pH 8.0 (5.0-8.0) Urine Specific [place] 1.032 (1.001-1.031) Urine Protein NEGATIVE mg/dL (NEGATIVE) Urine Glucose (UA) >=1000 mg/dL (NEGATIVE) H Urine Ketones NEGATIVE mg/dL (NEGATIVE) Urine Occult Blood NEGATIVE (NEGATIVE) Urine Nitrate NEGATIVE (NEGATIVE) Urine Bilirubin NEGATIVE mg/dL (NEGATIVE) Urine Urobilinogen 0.2 mg/dL (0.2-1.0) Urine Leukocyte Esterase 25 James/uL (NEGATIVE) H Urine RBC 0-1 /HPF (0-1) Urine WBC 2-5 /HPF (0-1) H Urine Bacteria None /HPF (None Seen) Urine Opiates Screen NEGATIVE (NEGATIVE) Urine Barbiturates Screen NEGATIVE (NEGATIVE) Urine Phencyclidine Screen NEGATIVE (NEGATIVE) Urine Amphetamines Screen NEGATIVE (NEGATIVE) Urine Benzodiazepines Screen NEGATIVE (NEGATIVE) Urine Cocaine Screen NEGATIVE (NEGATIVE) Urine Marijuana (THC) Screen POSITIVE (NEGATIVE) H EKG/XRAY/US/CT/MRI EKG Comment 08/29/2024 time 6:01 a.m. Ventricular rate 99 Sinus rhythm [place] [address] wave elevation or depression MDM MDM: Differential diagnosis: Rationale: Tests considered and ordered secondary to shared decision making include: labs, ECG and radiology Previous outside records reviewed: Old ER visits. Risk of complication and/or morbidity or mortality of patient management: None Medications-Per medication reconciliation Need for hospitalization: Patient does meet criteria for hospitalization. Need for emergency major/minor surgery: No There are no social concerns with this patient. Prescription drug management Prescriptions will include symptomatic care Patient's prior external medical records from other ER visits were reviewed by me as indicated. Prior testing and results from previous visits were reviewed. Prior tests were taken into account with medical decision making and resource utilization, independent historian/historians were used to obtain complete medical history. I independently interpreted the test that were performed, results were reviewed by me and considered findings on radiology if ordered. Medical management and examination interpretation discussions were had by me with other qualified healthcare professionals as indicated for the patient's care. DR BO: took over care at 0700 CC: general body weakness, reports her blood glucose was low, reports some leg discomfort arm discomfort dyspnea. Multiple complaints. Comorbidities: Anxiety, depression, DM two, DLD, heart disease, HTN, CABG Differential diagnosis: ACS, infection, arrhythmia, PE, other. Labs (independently interpreted by me): CBC normal, coags normal. Metabolic panel shows a potassium 3.2 replaced in the ER. Creatinine 1.5. I performed an external chart review to look at previous labs and this is baseline for the patient. Glucose 265. CK normal. Troponin x2 normal. BNP normal.D-dimer elevated we will get a CTA. Urinalysis shows glucose, some leuk esterase. We will treat. High specific gravity. Tox screen positive for marijuana. CXR ( independently interpreted by me):: No cardiomegaly or pleural effusions, CABG scar in place, clear lung glover without any signs of infection. CTA chest PE protocol ( independently interpreted by me): No cardiomegaly and no pleural effusions clear lung glover. No signs of significant pulmonary embolism. In the ER patient received 1 L of normal saline for dehydration. She received 0.5 mg of Ativan for anxiety. She received 50 mEq of oral potassium for potassium replacement. No life threats at this time. We will treat UTI. Low suspicion for cardiac disease. We will discharge. REASON: dyspnea, chest pain ORDERING PHYSICIAN: MADIHA BO DO PROCEDURE: CHES PE - CT CHEST PE PROTOCOL WWO CONT CT ANGIOGRAM OF THE CHEST WITHOUT AND WITH CONTRAST. CT RECONSTRUCTIONS INDICATION: Dyspnea and chest pain TECHNIQUE: Routine axial images using 3 mm slice thickness were acquired from the lung apices to the bases before and after the intravenous administration of 100 mL of Omnipaque 350 contrast material using the pulmonary embolism protocol. Maximum Intensity Projection imaging in the sagittal and coronal planes were also provided. CT was performed with one or more of the following dose reduction techniques: Automated exposure control, adjustment of the mA and/or kV according to patient size, or use of iterative reconstruction technique. COMPARISON: None FINDINGS: Median sternotomy wires are in appropriate alignment. The contrast bolus is of good quality for diagnosis of pulmonary embolism. The heart size is within normal limits without pericardial effusion. Coronary arterial wall calcific plaque noted. The main pulmonary arteries, segmental branches, and visualized subsegmental pulmonary arteries appear normal without intraluminal filling defects. Pulmonary trunk is not enlarged. Mild calcific plaque is present along the aortic arch and thoracic aortic calderón without aneurysmal dilation or dissection. The visible portions of the trachea and airways are patent. No pleural effusion, pneumothorax, abnormal opacity or consolidation, pulmonary nodule, or mass identified. No axillary, hilar, or mediastinal lymphadenopathy detected. Gallbladder is absent. 3.0 cm right adrenal gland adenoma. Visible osseous structures are intact. IMPRESSION: 1. No evidence for pulmonary embolism. 2. 3.0 cm right adrenal gland adenoma. 3. Arteriosclerotic disease as described. ED Course Orders Procedure Category Date Status Time Cbc With Differential LAB 08/29/24 Complete 05:52 Prothrombin Time With LAB 08/29/24 Complete INR 05:52 B-Type Natriuretic LAB 08/29/24 Complete Peptide 05:52 Chest 1vw RAD 08/29/24 Taken 05:52 12 Lead Ekg Tracing- EKG 08/29/24 Logged Technical 05:52 Magnesium LAB 08/29/24 Complete 05:52 Creatine Kinase, Total LAB 08/29/24 Complete 05:52 Troponin I High LAB 08/29/24 Complete Sensitivity 05:52 Urinalysis Profile LAB 08/29/24 Complete 05:52 Partial LAB 08/29/24 Complete Thromboplastin Time 05:52 Basic Metabolic Panel LAB 08/29/24 Complete 05:52 Drug Screen Urine LAB 08/29/24 Complete 05:52 0.9%Nacl 1000ml (Ns PHA 08/29/24 Complete 1000ml) 06:30 Potassium Bicarb/Cit PHA 08/29/24 Complete Ac 25meq (K-Lyte Ta 07:30 D-Dimer LAB 08/29/24 Complete 07:13 Ct Chest Pe Protocol CT 08/29/24 Resulted Wwo Cont 07:14 Lorazepam 0.5 Mg PHA 08/29/24 Complete (Ativan) 07:30 Iohexol (Omnipaque) PHA 08/29/24 Complete 07:35 Troponin I High LAB 08/29/24 Complete Sensitivity 07:56 Current Medications Medications (Trade) Dose Ordered Sig/Jhoan Route PRN Reason Start Time Stop Time Status Last Admin Dose Admin Iohexol (Omnipaque) 75 ml STK-MED ONCE IV 08/29/24 07:35 08/29/24 07:40 DC Lorazepam (AtiVAN) 0.5 mg ONCE ONCE PO 08/29/24 07:30 08/29/24 07:31 DC 08/29/24 07:25 Potassium Bicarbonate (K-Lyte Tablet Eff 25 Meq Tablet.eff) 50 meq ONCE ONCE PO 08/29/24 07:30 08/29/24 07:31 DC 08/29/24 07:25 Sodium Chloride 1,000 ml @ 0 mls/hr ONCE ONCE IV 08/29/24 06:30 08/29/24 06:31 DC 08/29/24 06:37 Vital Signs Date Time Temp Pulse Resp B/P (MAP) Pulse Ox O2 Delivery O2 Flow Rate FiO2 08/29/24 08:52 97.5 96 20 155/95 100 Nasal Cannula* 2 08/29/24 07:06 97.5 80 20 184/69 100 Room Air* 0 08/29/24 06:18 91 22 162/111 99 Room Air* 0 08/29/24 05:42 97.5 138 20 161/101 98 Room Air DX & DISP Disposition: Discharge Departure Impression: Primary Impression: UTI (urinary tract infection) Additional Impressions: Hyperglycemia, Hypokalemia, Dehydration, Marijuana use Condition: Stable Additional Instructions: There are no medical emergencies here today. Your final diagnosis includes urinary tract infection, hyperglycemia, dehydration, hypokalemia, and marijuana use. Your lab work (CBC, BMP, CK, troponin, BNP, urinalysis, coags, tox screen) show mildly elevated blood glucose, signs of dehydration, and the positive marijuana test. The CT scan of your chest with contrast shows no signs of blood clots or lung abnormalities. Your chest x-ray is normal. Your EKG is stable. You received IV fluids and potassium here in the ER. You received a dose of Ativan for anxiety. I have prescribed Macrobid, which is an antibiotic. Take as prescribed for the next five days. Be sure to drink plenty of liquids. For the low potassium, I recommend eating a high fruit and vegetable diet for the next few days. Consider bananas, avocados, oranges, spinach, tomatoes, and beans. Avoid processed foods. Continue with all your home medications including your diabetic medications. You can take [id number] Tylenol as needed for discomfort. I recommend avoiding marijuana use. This is can increase anxiety type symptoms. Please follow up with your primary doctor early next week for re-evaluation. Return to the emergency department sooner if you have any concerns. Referrals: CASH SALINAS MD (PCP) WILLIS CHARLTON MD Aug 29, 2024 06:22 MADIHA BO DO Aug 29, 2024 09:22
[2024-08-29 06:30] LABS: INR 1.06 (0.85-1.15); PROTHROMBIN TIME 11.4 SEC (9.6-11.6)
[2024-08-29 06:31] LABS: PARTIAL THROMBOPLASTIN TIME 28.4 SEC (26.3-35.5)
[2024-08-29 06:35] LABS: CREATININE 1.5 mg/dL (0.5-1.0); MAGNESIUM 1.8 mg/dL (1.80-2.40); POTASSIUM 3.2 mmol/L (3.5-5.1)
[2024-08-29] MEDS: 0.9%NACL 1000ML 1,000 ML IV ONE (06:37)
[2024-08-29 07:07] LABS: B-TYPE NATRIURETIC PEPTIDE 86 pg/mL (0-100)
[2024-08-29] MEDS: PoTASSium BIcarbonate/CIT AC 25 MEQ TABLET.EFF PO ONE (07:25)
[2024-08-29] MEDS: LORazepam 0.5 MG TABLET PO ONE (07:25)
[2024-08-29] MEDS ORDERED: IOHEXOL-350 75 ML VIAL IV ONE (07:35)
[2024-08-29 09:03] LABS: ADD UA MICROSCOPIC YES; APPEARANCE,URINE CLEAR (CLEAR); BILIRUBIN,URINE NEGATIVE (NEGATIVE); COLOR,URINE COLORLESS (YELLOW); GLUCOSE, URINE (UA) >=1000 mg/dL (NEGATIVE); KETONES,URINE NEGATIVE (NEGATIVE); LEUKOCYTE ESTERASE ,URINE 25 Leu/uL (NEGATIVE); NITRATE,URINE NEGATIVE (NEGATIVE); OCCULT BLOOD,URINE NEGATIVE (NEGATIVE); PROTEIN,URINE NEGATIVE (NEGATIVE); UROBILINOGEN,URINE 0.2 mg/dL (0.2-1.0)
[2024-08-29 09:04] LABS: AMPHET/METH SCREEN,URINE NEGATIVE (NEGATIVE); BARBITURATE SCREEN, URINE NEGATIVE (NEGATIVE); BENZODIAZEPINES SCREEN,URINE NEGATIVE (NEGATIVE); CANNABINOID SCREEN,URINE POSITIVE (NEGATIVE); COCAINE SCREEN,URINE NEGATIVE (NEGATIVE); OPIATE SCREEN,URINE NEGATIVE (NEGATIVE); PHENCYCLIDINE SCREEN,URINE NEGATIVE (NEGATIVE)
[2024-08-29 09:05] LABS: MUCUS,URINE RARE LPF (None Seen); RBC,URINE 0-1 /HPF (0-1)
--- NOTE | 2024-08-29 09:09 | HMCIMG ---
CT ANGIOGRAM OF THE CHEST WITHOUT AND WITH CONTRAST. CT RECONSTRUCTIONS INDICATION: Dyspnea and chest pain TECHNIQUE: Routine axial images using 3 mm slice thickness were acquired from the lung apices to the bases before and after the intravenous administration of 100 mL of Omnipaque 350 contrast material using the pulmonary embolism protocol. Maximum Intensity Projection imaging in the sagittal and coronal planes were also provided. CT was performed with one or more of the following dose reduction techniques: Automated exposure control, adjustment of the mA and/or kV according to patient size, or use of iterative reconstruction technique. COMPARISON: None FINDINGS: Median sternotomy wires are in appropriate alignment. The contrast bolus is of good quality for diagnosis of pulmonary embolism. The heart size is within normal limits without pericardial effusion. Coronary arterial wall calcific plaque noted. The main pulmonary arteries, segmental branches, and visualized subsegmental pulmonary arteries appear normal without intraluminal filling defects. Pulmonary trunk is not enlarged. Mild calcific plaque is present along the aortic arch and thoracic aortic calderón without aneurysmal dilation or dissection. The visible portions of the trachea and airways are patent. No pleural effusion, pneumothorax, abnormal opacity or consolidation, pulmonary nodule, or mass identified. No axillary, hilar, or mediastinal lymphadenopathy detected. Gallbladder is absent. 3.0 cm right adrenal gland adenoma. Visible osseous structures are intact. IMPRESSION: 1. No evidence for pulmonary embolism. 2. 3.0 cm right adrenal gland adenoma. 3. Arteriosclerotic disease as described.
[2024-08-29 09:35] VITALS: BP 167/89; PULSE 89; RESP 20; TEMP 97.5; O2SAT 98
[2024-08-29] MEDS ORDERED: MACR100 PO (09:36)
--- NOTE | 2024-08-29 09:51 | HMCIMG ---
PORTABLE CHEST RADIOGRAPH INDICATION: chest pain COMPARISON: 12/15/2023 FINDINGS: Median sternotomy wires are in appropriate alignment. Heart size is normal. The pulmonary vascularity and sobia appear normal. No abnormal pulmonary parenchymal opacity or consolidation identified. No significant pleural effusion noted. No pneumothorax detected. IMPRESSION: No radiographic evidence for any acute cardiopulmonary process.
--- NOTE | 2024-08-29 15:43 | EKG ---
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
[2024-08-30] MEDS ORDERED: ONDA-243 PO (00:45)
== END 2024-08-29 09:45 | disposition home or self-care (01) ==
LOC: EDH 05:41
DX: N39.0 Urinary tract infection, site not specified (principal); E11.65 Type 2 diabetes mellitus with hyperglycemia; E86.0 Dehydration; E87.6 Hypokalemia; E78.00 Pure hypercholesterolemia, unspecified; F32.A Depression, unspecified; F41.9 Anxiety disorder, unspecified; I10 Essential (primary) hypertension; F12.90 Cannabis use, unspecified, uncomplicated; Z79.02 Long term (current) use of antithrombotics/antiplatelets; Z79.4 Long term (current) use of insulin; Z79.84 Long term (current) use of oral hypoglycemic drugs; Z79.85 Long-term (current) use of injectable non-insulin antidiabetic drugs; Z79.899 Other long term (current) drug therapy; Z90.49 Acquired absence of other specified parts of digestive tract; Z95.1 Presence of aortocoronary bypass graft
CPT/HCPCS: 99285; 96360; 71270; 96361; 71045; 82550; 83735; 84484 ×2; 80048; 83880; 80305; 85025; 85378; 85610; 85730; 82948; 36415; 93005; 81001; J7030; Q9967

== ENCOUNTER 2024-08-29 23:13 | Emergency (ER) | payer MEDICARE ==
[~2024-08-29] VITALS: Ht 165.1 cm; Wt 74.8 kg
[~2024-08-29 23:13] MED LIST changes: +MACR100 PO
[2024-08-29] MEDS: 0.9%NACL 1000ML 1,000 ML IV STA (23:33)
[2024-08-29 23:38] LABS: BASOPHILS # (AUTO) 0.03 K/uL (0.00-0.20); BASOPHILS % (AUTO) 0.2 % (0.0-5.0); HEMATOCRIT 39.8 % (36-48); IMMATURE GRANULOCYTE ABSOLUTE 0.06 K/uL (0-1); LYMPHOCYTES # (AUTO) 2.4 K/uL (1.0-4.8); LYMPHOCYTES % (AUTO) 18.3 % (21.0-51.0); MEAN CORPUSCULAR HGB CONC 33.4 g/dL (32.0-36.0); MEAN CORPUSCULAR VOLUME 86.9 fL (79-99); MONOCYTES # (AUTO) 0.8 K/uL (0.1-1.0); MONOCYTES % (AUTO) 6.1 % (3.0-13.0); NEUTROPHILS % (AUTO) 74.9 % (40.0-77.0); NUCLEATED RED BLOOD CELLS 0.2 % (0.0-0.19); PLATELET COUNT (AUTO) 305 K/uL (130-400); RED BLOOD CELL COUNT(AUTO) 4.58 MIL/uL (4.00-5.50); RED CELL DISTRIBUTION WIDTH 17.7 % (11.0-15.5); WHITE BLOOD COUNT (AUTO) 13.3 K/uL (4.8-10.8)
[2024-08-29 23:46] LABS: CREATININE 1.5 mg/dL (0.5-1.0); POTASSIUM 3.7 mmol/L (3.5-5.1)
[2024-08-30] MEDS ORDERED: ONDA-243 PO (00:45)
--- NOTE | 2024-08-30 00:45 | ERN ---
ED Note History of Present Illness Stated Complaint: HIGH BLOOD SUGAR 328 Chief Complaint: Hyperglycemia Time Seen by MD: 23:16 Time Seen by Midlevel: 23:18 Dictation: 54-year-old female coming in with complaints of elevated blood sugar states at home it was reading 328. Patient was seen here in the morning diagnosed with a UTI and was told to drink fluids, Gatorade to replace her low potassium, patient has been drinking Gatorade so entire time. Patient states she has not filled out her antibiotic prescription because everything was closed today due to Thanksgiving, and has no taking her Toujeo in two days. Allergies: Coded Allergies: No Known Drug Allergies (Verified Allergy, Unknown, 02/03/20) Home Meds Active Scripts Ondansetron (Ondansetron Odt) 4 Mg Tab.rapdis, 1 TAB PO Q6HPRN PRN for nausea/vomiting for 3 Days, #12 TAB 0 Refills Prov:JOSEPHINE THACKER [employer] 08/30/24 Nitrofurantoin/Nitrofuran Mac (Macrobid) 100 Mg Cap, 1 CAP PO BID for 5 Days, #10 CAP 0 Refills Prov:MADIHA BO DO 08/29/24 Reported Medications Insulin Detemir (Levemir Flextouch) 100 Unit/1 Ml Insuln.pen, 30 UNITS SQ DAILY 12/07/22 Semaglutide (Ozempic) 0.25 Mg/0.4 Ml Pen.injctr, 0.25 MG SQ QWEEK 12/07/22 Rosuvastatin Calcium (Rosuvastatin Calcium) 20 Mg Tablet, 20 MG PO HS 12/07/22 Cyclobenzaprine HCl (Cyclobenzaprine HCl) 5 Mg Tablet, 5 MG PO BID 12/07/22 Clopidogrel Bisulfate (Clopidogrel) 75 Mg Tablet, 75 MG PO DAILY 12/07/22 Topiramate (Topiramate) 25 Mg Tablet, 25 MG PO BID 12/07/22 Glipizide (Glipizide) 10 Mg Tablet, 10 MG PO DAILY 12/07/22 Ondansetron HCl (Ondansetron HCl) 4 Mg Tablet, 4 MG PO Q6HR PRN for NAUSEA/VOMITING 12/07/22 Nitroglycerin (Nitroglycerin) 0.4 Mg Tab.subl, 0.4 MG SL DAILY PRN for CHEST PAIN 12/07/22 Lisinopril (Lisinopril) 20 Mg Tablet, 1 TAB PO DAILY 12/07/22 Zolpidem Tartrate (Zolpidem Tartrate ER) 12.5 Mg Tab.mphase, 1 TAB PO HSPRN PRN for INSOMNIA 12/07/22 Past Medical History Past Medical History: Anxiety, Depression, Diabetes-Type I, Diabetes-Type II, High Cholesterol, Heart Disease, Hypertension Additional Past Medical Hx: CHRONIC BACK PAIN Surgical History: Cholecystectomy, CABG, Other Surgical History Other: TRIPLE BYPASS, BILATERAL KNEE SURGERY Review of System Dictation Constitutional: Negative for fever,chills, and weight loss Eyes: Negative for injury, pain,redness, and discharge ENT: Negative for injury,pain or swelling Cardiovascular: Negative for chest pain, palpitations, and edema Respiratory: Negative for shortness of breath, cough, and wheezing, Abdomen/GI: Negative for abdominal pain, nausea, vomiting, diarrhea, and constipation Back: Negative for injury and pain : Negative for injury, bleeding and discharge MS/Extremity: Negative for injury and deformity Skin: Negative for rash, and discoloration Neuro: Negative for headache, weakness, numbness, tingling, and seizure Psych: Negative for suicide ideation, homicidal ideation, and hallucinations Review of Systems: was completed Initial Vital Sign VS Vital Signs Date Time Temp Pulse Resp B/P (MAP) Pulse Ox O2 Delivery O2 Flow Rate FiO2 08/29/24 23:15 97.3 102 18 156/96 99 Room Air 08/29/24 23:36 0 21 Physical Exam Dictation General: awake, alert, NAD Head/Face: Normocephalic, atraumatic Eyes: PERRL, EOMI, vision at baseline ENT: oral cavity clear, TMs clear, no signs of infection Neck: Trachea midline, supple, no nuchal rigidity Cardiovascular: RRR, normal S1/S2, No MRGs, no JVD Respiratory: CTAB, no respiratory distress, No rales or wheezes Abdomen: Soft, non-tender, non-distended, normal bowel sounds, no guarding or rebound. Skin: Warm, dry, normal turgor, no rash MS/Extremity: Pulses equal, no cyanosis, neurovascular intact, FROM Neuro: COAx4, GCS 15, strength 5/5, CN 2-12 intact, normal cerebellar exam, normal gait, Psych: Normal behavior, mood, and affect normal Results (Laboratory/Radiology) Laboratory/Radiology Laboratory Tests Test 08/29/24 23:31 08/30/24 00:52 White Blood Count 13.3 K/uL (4.8-10.8) H Red Blood Count 4.58 MIL/uL (4.00-5.50) Hemoglobin 13.3 g/dL (12.0-16.0) Hematocrit 39.8 % (36-48) Mean Corpuscular Volume 86.9 fL (79-99) Mean Corpuscular Hemoglobin 29.0 pg (27.0-33.0) Mean Corpuscular Hemoglobin Concent 33.4 g/dL (32.0-36.0) Red Cell Distribution Width 17.7 % (11.0-15.5) H Platelet Count 305 K/uL (130-400) Mean Platelet Volume 9.4 fL (7.5-10.5) Immature Granulocyte % (Auto) 0.5 % (0-1) Neutrophils (%) (Auto) 74.9 % (40.0-77.0) Lymphocytes (%) (Auto) 18.3 % (21.0-51.0) L Monocytes (%) (Auto) 6.1 % (3.0-13.0) Eosinophils (%) (Auto) 0.0 % (0.0-8.0) Basophils (%) (Auto) 0.2 % (0.0-5.0) Neutrophils # (Auto) 10.0 K/uL (1.8-7.7) H Lymphocytes # (Auto) 2.4 K/uL (1.0-4.8) Monocytes # (Auto) 0.8 K/uL (0.1-1.0) Eosinophils # (Auto) 0.00 K/uL (0.00-0.70) Basophils # (Auto) 0.03 K/uL (0.00-0.20) Absolute Immature Granulocyte (auto 0.06 K/uL (0-1) Nucleated Red Blood Cells 0.2 % (0.0-0.19) H Sodium Level 138 mmol/L (136-145) Potassium Level 3.7 mmol/L (3.5-5.1) Chloride Level 99 mmol/L (101-111) L Carbon Dioxide Level 31 mmol/L (21-32) Blood Urea Nitrogen 11 mg/dL (7-18) Creatinine 1.5 mg/dL (0.5-1.0) H Glomerular Filtration Rate Calc 42 mL/min (>90) Random Glucose 252 mg/dL (70-105) H Total Calcium 9.1 mg/dL (8.5-10.1) Whole Blood Glucose 194 MG/DL (70-110) H ED Course ED Course Orders Procedure Category Date Status Time Cbc With Differential LAB 08/29/24 Complete 23:22 Basic Metabolic Panel LAB 08/29/24 Complete 23:22 0.9%Nacl 1000ml (Ns PHA 08/29/24 Complete 1000ml) 23:22 Current Medications Medications (Trade) Dose Ordered Sig/Jhoan Route PRN Reason Start Time Stop Time Status Last Admin Dose Admin Sodium Chloride 1,000 ml @ 100 mls/hr Q10H STAT IV 08/29/24 23:22 08/30/24 01:25 DC 08/29/24 23:33 Vital Signs Date Time Temp Pulse Resp B/P (MAP) Pulse Ox O2 Delivery O2 Flow Rate FiO2 08/30/24 00:56 98.2 78 18 153/55 99 Room Air* 0 21 08/29/24 23:36 98.4 88 18 154/60 99 Room Air* 0 21 08/29/24 23:15 97.3 102 18 156/96 99 Room Air Medical Decision Making MDM MDM: CBC shows leukocytosis, no anemia, no thrombocytopenia. Chemistry shows elevated creatinine at 1.5, however seems to be patient's a sling as previous visit this morning was a same. Hyperglycemia at 2:52 a.m., improvement from this morning. Gave a L of fluids here in the emergency room,. Spoke to patient extensively and educated the importance of patient having to take her medications as prescribed, take her blood sugars every morning before taking her insulin, feeling her prescription medication for her urinary tract infection, no sugary drinks. Educated to follow up with her PCP in 1-2 days and to return to the emergency room symptoms worsen. Patient verbalized understanding, answered all questions. Differential diagnosis: DKA, hyperglycemia, dehydration Rationale: Tests considered and ordered secondary to shared decision making include: Previous outside records reviewed: Old ER visits. Risk of complication and/or morbidity or mortality of patient management: None Medications-Per medication reconciliation Need for hospitalization: Patient does not meet criteria for hospitalization. Need for emergency major/minor surgery: No There are no social concerns with this patient. Prescription drug management Prescriptions will include symptomatic care Patient's prior external medical records from other ER visits were reviewed by me as indicated. Prior testing and results from previous visits were reviewed. Prior tests were taken into account with medical decision making and resource utilization, independent historian/historians were used to obtain complete medical history. I independently interpreted the test that were performed, results were reviewed by me and considered findings on radiology if ordered. Medical management and examination interpretation discussions were had by me with other qualified healthcare professionals as indicated for the patient's care. DX & DISP Disposition: Discharge Departure Impression: Primary Impression: Hyperglycemia Additional Impression: Non-compliance with treatment Condition: Stable Scripts Ondansetron (Ondansetron Odt) 4 Mg Tab.rapdis 1 TAB PO Q6HPRN PRN for nausea/vomiting for 3 Days, #12 TAB 0 Refills Prov: JOSEPHINE THACKER NP 08/30/24 Referrals: CASH SALINAS MD (PCP) Time of Disposition: 00:44 I have reviewed the case, and I agree with, Diagnosis and Plan ATTESTATION BY PHYSICIAN I PERFORMED THE SUBSTANTIVE PORTION OF THE VISIT. I HAVE REVIEWED AND PERSONALLY MADE AND APPROVED THE MANAGEMENT PLAN THAT IS DOCUMENTED IN THE NOTE BY MYSELF FOR THE A PP. I ACKNOWLEDGED FOR RESPONSIBILITY FOR THE PATIENT'S MANAGEMENT PLAN. JOSEPHINE THACKER NP Aug 30, 2024 00:45 WILLIS CHARLTON MD Sep 01, 2024 03:25
[2024-08-30 00:56] VITALS: BP 153/55; PULSE 78; RESP 18; TEMP 98.3; O2SAT 99
--- NOTE | 2024-08-30 00:57 | NUR ---
PT AND HER REALTIVE IS BEING RUDE AND MEAN TO ER STAFF RECHECKED BLOOD GLUC 194, PT V/S STABLE
== END 2024-08-30 01:24 | disposition home or self-care (01) ==
LOC: EDH 23:13
DX: E10.65 Type 1 diabetes mellitus with hyperglycemia (principal); E78.00 Pure hypercholesterolemia, unspecified; I10 Essential (primary) hypertension; Z79.02 Long term (current) use of antithrombotics/antiplatelets; Z79.4 Long term (current) use of insulin; Z79.84 Long term (current) use of oral hypoglycemic drugs; Z79.85 Long-term (current) use of injectable non-insulin antidiabetic drugs; Z79.899 Other long term (current) drug therapy; Z90.49 Acquired absence of other specified parts of digestive tract; Z91.199 Patient's noncompliance with other medical treatment and regimen due to unspecified reason; Z95.1 Presence of aortocoronary bypass graft; Z86.718 Personal history of other venous thrombosis and embolism
CPT/HCPCS: 99285; 99283; 96360; 71270; 96361; 71045; 82550; 83735; 84484 ×2; 80048 ×2; 83880; 80305; 85025 ×2; 85378; 85610; 85730; 82948 ×2; 81001; 36415 ×2; 93005; J7030; Q9967